=== PATIENT | male | born 1995 | race African-American/Black ===

== ENCOUNTER 2024-06-26 12:12 | Emergency (ER) | payer BC, SELFPAY ==
[2024-06-26 12:20] VITALS: BP 161/111; PULSE 77; TEMP 36.8; O2SAT 97; BMI 44.1
--- NOTE | 2024-06-26 12:39 | XR_ITS ---
The [address] [address] Patient Name: RADHA ISABEL MRN: [id number] date: 1995 Sex: M Assigned Patient Location: ED.MAIN Current Patient Location: ER Accession/Order Number: [id number] Exam Date: 06/26/2024 12:54 Report Date: 06/26/2024 13:36 At the request of: AP ALMONTE Procedure: XR chest 1V EXAM: XR chest 1V at 1244 hours HISTORY: chest pain COMPARISON: None. TECHNIQUE: AP upright portable chest x-ray FINDINGS: The heart is not enlarged and the vasculature is not distended. No acute infiltrate, effusion or pneumothorax is identified. The osseous structures are grossly intact XR/XR chest 1V IMPRESSION: No acute infiltrate or evidence of cardiac decompensation. Electronically authenticated by: AVI WHITNEY Date: 06/26/2024 13:36
--- NOTE | 2024-06-26 12:39 | ED.GENADUL1 ---
HPI HPI - General Adult General Chief complaint: Chest Pain Stated complaint: CHEST PAIN Time Seen by Provider: 06/26/24 12:29 History of Present Illness HPI narrative: Patient presenting to the emergency department for evaluation of chest pain. Patient states for the last 3 days has had chest pain, left side of his chest, feels like an aching burning sensation. No radiation of the pain. States it is approximately 4 out of 10, coming and going over the last 3 days. States nothing makes it come, nothing makes it go, it randomly comes and goes. Is not having shortness of breath, nausea, vomiting, sweating. States nothing he does that makes it come on or go away. It just happens randomly and some. Sometimes lasting a couple seconds, sometimes a couple minutes, sometimes a couple hours. States he only has a history of diabetes. No other complaints at this time Related Data Home Medications ?Medication ?Instructions ?Recorded ?Confirmed insulin glargine subcut 06/26/24 Allergies Allergy/AdvReac Type Severity Reaction Status Date / Time No Known Drug Allergies Allergy Verified 06/26/24 12:20 Opioid HPI Opioid Management Most Recent Opioid Data: Last Pain Scale 7 06/26/24 12:57 06/26/24 Review of Systems ROS Narrative Negative unless otherwise stated in the HPI PFSH PFSH Social History Little interest or pleasure in doing things: not at all Feeling down, depressed, or hopeless: not at all Exam Narrative Exam Narrative: General: NAD, AAOx3, no distress Respiratory: respiratory effort normal, speaks in full sentences, no tripod position, no accessory muscle use. Lungs clear to auscultation without rhonchi, wheezes, rales Cardiac: Regular rate and rhythm, no edema, regular s1/s2, no m/g/r Abdomen: Soft, ND/NT. No evidence of fluid wave. No pulsatile masses on exam, rebound tenderness, Etienne sign or pain over Mcburney's point. Constitutional Vital Signs, click to edit/add: Last Vital Signs Temp 98.2 F 06/26/24 12:20 Pulse 77 06/26/24 12:20 Resp 18 06/26/24 12:20 BP 161/111 H 06/26/24 12:20 Pulse Ox 98 06/26/24 13:00 O2 Del Method Room Air 06/26/24 13:00 Course Vital Signs Vital signs: Vital Signs Temperature 98.2 F 06/26/24 12:20 Pulse Rate 77 06/26/24 12:20 Respiratory Rate 18 06/26/24 12:20 Blood Pressure 161/111 H 06/26/24 12:20 Pulse Oximetry 97 06/26/24 12:20 Oxygen Delivery Method Room Air 06/26/24 12:20 Temperature 98.2 F 06/26/24 12:20 Pulse Rate 77 06/26/24 12:20 Respiratory Rate 18 06/26/24 12:20 Blood Pressure 161/111 H 06/26/24 12:20 Pulse Oximetry 98 06/26/24 13:00 Oxygen Delivery Method Room Air 06/26/24 13:00 Medical Decision Making MDM Narrative Medical decision making narrative: the patient has atypical chest pain as the patient's chest pain is not suggestive of pulmonary embolus, cardiac ischemia, aortic dissection, or other serious etiology. Given the extremely low risk of these diagnoses further testing and evaluation for these possibilities does not appear to be indicated at this time. The patient has been instructed to return if the symptoms worsen or change in any way. Advanced guidance has been given. Vss, pex is benign at this time. Pt to fu with pcp 1-2 days for reeval, rter should sx worsen, persist or become worrysome in any way. Pt expressed understanding and agreement with plan of care at this time. Will fu as planned. Pt stable for discharge. Lab Data Labs: Lab Results 06/26/24 Range/Units 12:46 WBC 9.4 (4.0-11.0) 10^3/uL RBC 6.34 H (4.70-6.10) 10^6/uL Hgb 14.0 (14.0-18.0) g/dL Hct 45.4 (42.0-54.0) % MCV 71.6 L (80.0-94.0) fL MCH 22.1 L (25.9-34.0) pg MCHC 30.8 (29.9-35.2) g/dL RDW 15.8 H (11.0-15.0) % Plt Count 277 (150-450) 10^3/uL MPV 9.8 (9.5-13.5) fL Neut % (Auto) 60.3 (43.0-75.0) % Lymph % (Auto) 32.8 (20.5-60.0) % [place] % (Auto) 4.7 (1.7-12.0) % Eos % (Auto) 1.1 (0.9-7.0) % Baso % (Auto) 0.3 (0.2-2.0) % Neut # (Auto) 5.7 (1.4-6.5) 10^3/uL Lymph # (Auto) 3.1 (1.2-3.8) 10^3/uL [place] # (Auto) 0.4 (0.3-0.8) 10^3/uL Eos # (Auto) 0.1 (0.0-0.7) 10^3/uL Baso # (Auto) 0.0 (0.0-0.1) 10^3/uL Abs Immat Gran (auto) 0.08 H (0.00-0.03) 10^3/uL Imm/Tot Granulo (auto) 0.8 H (0.0-0.5) % PT 10.3 (9.0-11.6) sec INR 0.97 APTT 21.4 L (22.3-36.2) sec Sodium 138 (136-145) mmol/L Potassium 3.6 (3.5-5.1) mmol/L Chloride 102 (98-107) mmol/L Carbon Dioxide 29.3 (21.0-32.0) mmol/L Anion Gap 10.3 BUN 9.0 (7.0-18.0) mg/dL Creatinine 0.97 (0.70-1.30) mg/dL Est GFR ( Amer) >60 (>=60 mL/min/1.73m^2) Est GFR (Non-Af Amer) >60 (>=60 mL/min/1.73m^2) BUN/Creatinine Ratio 9.3 Glucose 125 H (74-106) mg/dL Calcium 9.3 (8.5-10.1) mg/dL Troponin I High Sens 4.4 (4.0-76.1) pg/mL Discharge Plan Discharge Chief Complaint: Chest Pain Clinical Impression: Chest pain, Atypical chest pain Patient Disposition: Home, Self-Care Time of Disposition Decision: 14:03 Prescriptions / Home Meds: No Action insulin glargine [Lantus U-100 Insulin] subcut Print Language: Filipino Instructions: Chest Pain (ED) Additional Instructions: Follow-up with your PCP in the next 1 to 2 days. Return to the emergency department should symptoms worsen or become worrisome in any way. Referrals: Physician,Non-Staff, MD [Primary Care Provider] - 1 week
[2024-06-26 12:54] LABS: Basophils Percent Auto 0.3 % (0.2-2.0); Eosinophils Absolute Auto 0.1 10^3/uL (0.0-0.7); Eosinophils Percent Auto 1.1 % (0.9-7.0); Hematocrit 45.4 % (42.0-54.0); Immature Granulocytes Abs Auto 0.08 10^3/uL (0.00-0.03); Immature Granulocytes Pct Auto 0.8 % (0.0-0.5); Lymphocytes Absolute Auto 3.1 10^3/uL (1.2-3.8); Lymphocytes Percent Auto 32.8 % (20.5-60.0); Mean Corpuscular HGB Conc 30.8 g/dL (29.9-35.2); Mean Corpuscular Hemoglobin 22.1 pg (25.9-34.0); Mean Corpuscular Volume 71.6 fL (80.0-94.0); Mean Platelet Volume 9.8 fL (9.5-13.5); Monocytes Absolute Auto 0.4 10^3/uL (0.3-0.8); Monocytes Percent Auto 4.7 % (1.7-12.0); Neutrophils Absolute Auto 5.7 10^3/uL (1.4-6.5); Neutrophils Percent Auto 60.3 % (43.0-75.0); Platelet Count 277 10^3/uL (150-450); Red Blood Count 6.34 10^6/uL (4.70-6.10); Red Cell Distribution Width 15.8 % (11.0-15.0); White Blood Count 9.4 10^3/uL (4.0-11.0)
[2024-06-26 13:00] VITALS: O2SAT 98
[2024-06-26 13:07] LABS: INR 0.97; Partial Thromboplastin Time 21.4 sec (22.3-36.2); Prothrombin Time 10.3 sec (9.0-11.6)
[2024-06-26 13:11] LABS: Anion Gap 10.3; BUN Creatinine Ratio 9.3; Calcium 9.3 mg/dL (8.5-10.1); Carbon Dioxide 29.3 mmol/L (21.0-32.0); Chloride 102 mmol/L (98-107); Estimated GFR (African America >60 (>=60 mL/min/1.73m^2); Estimated GFR (Non-African Ame >60 (>=60 mL/min/1.73m^2); Glucose 125 mg/dL (74-106); Potassium 3.6 mmol/L (3.5-5.1); Sodium 138 mmol/L (136-145); Troponin I High Sensitivity 4.4 pg/mL (4.0-76.1)
[2024-06-26 14:21] VITALS: BP 131/77
== END 2024-06-26 14:22 | disposition home or self-care (01) ==
PROVIDERS: Emergency Provider Emergency Medicine
DX: R07.89 Other chest pain (principal); R07.9 Chest pain, unspecified; E11.9 Type 2 diabetes mellitus without complications; Z79.4 Long term (current) use of insulin
CPT/HCPCS: 36415; 71045; 80048; 84484; 85025; 85610; 85730; 99284